=== PATIENT | female | born 1955 | race African-American/Black ===

== ENCOUNTER 2019-02-18 02:14 | Inpatient (IN) | payer OTHER ==
[2019-02-18] VITALS (21 sets, daily range): BP systolic 74–175; BP diastolic 35–109
[~2019-02-18] VITALS: Ht 172.7 cm; Wt 88.5 kg
--- NOTE | 2019-02-18 02:28 | NUR ---
ED Nurse Note: Pt arrived Ed from home, c/o feeling "having a popcorn in her throat since 2129 today". Pt is A/O X 4. BP 172/89 at this time, waitng for orders.
--- NOTE | 2019-02-18 02:40 | NUR ---
ED Nurse Note: Blood and urine sample collected and sent to Lab.
[2019-02-18] MEDS ORDERED: DiphenhydrAMINE 50mg/ml Inj IVP ONE (02:45)
[2019-02-18] MEDS ORDERED: Solu-MEDROL 125mg Inj IVP ONE (02:45)
--- NOTE | 2019-02-18 02:53 | Emergency Room Report ---
History of Present Illness General Chief Complaint: Allergic Reaction Source: Patient Present Illness [facility] This is 63-year-old female with a history of high blood pressure on lisinopril. She also has a history of multiple sclerosis recently diagnosed. She presents with chief complaint of foreign body sensation. Onset was around 9:00 PM. 30 minutes prior to that she was eating popcorn. She had a foreign body sensation to her throat. She try coughing and eating and drinking but is not getting any better. She fell is getting worse. She try to induce vomiting in that did not help. She felt that her throat was swelling up. Does not have any allergy to corn. Denies any other complaint. Never had this problem before. Allergies: Coded Allergies: CEPHALEXIN (Verified Allergy, Unknown, 02/18/19) IODINE (Verified Allergy, Unknown, 02/18/19) PENICILLINS (Verified Allergy, Unknown, 02/18/19) Patient History Past Medical History: see triage record, old chart reviewed, HTN, other - MS Past Surgical History: other Pertinent Family History: none Social History: Denies: smoking Now: No Immunizations: other Reviewed Nursing Documentation: PMH: Agreed; PSxH: Agreed Nursing Documentation-PMH Hx Hypertension: Yes Review of Systems Eye: Denies: eye pain, blurred vision ENT: Denies: ear pain, nose congestion, throat swelling Respiratory: Reports: shortness of breath; Denies: cough Cardiovascular: Denies: chest pain, palpitations Gastrointestinal: Denies: abdominal pain, diarrhea, nausea, vomiting Musculoskeletal: Denies: back pain, joint pain Skin: Denies: rash Neurological: Denies: headache, numbness Endocrine: Denies: increased thirst, increased urine Hematologic/Lymphatic: Denies: easy bruising All Other Systems: negative except mentioned in HPI Physical Exam Vital Signs Date Time Temp Pulse Resp B/P (MAP) Pulse Ox O2 Delivery O2 Flow Rate FiO2 02/18/19 02:25 97.3 95 20 172/103 98 Room Air 96 vitals with high blood pressure Sp02 EP Interpretation: reviewed, normal General Appearance: well appearing, no apparent distress, alert Head: normocephalic, atraumatic Eyes: bilateral eye PERRL, bilateral eye EOMI ENT: hearing grossly normal, other - Edema to soft tissue. Mild edema to right side of tongue. Neck: full range of motion, supple, no meningismus, other - Edema and firmness to soft tissue of submental area Respiratory: chest non-tender, lungs clear, normal breath sounds Cardiovascular #1: regular rate, rhythm, no murmur Gastrointestinal: normal bowel sounds, non tender, no mass, no organomegaly, no bruit, non-distended Musculoskeletal: back normal, gait/station normal, normal range of motion Psychiatric: mood/affect normal Skin: warm/dry Procedures Critical Care Time Critical Care Time Critical care is mandated in this patient who presented with angioedema with respiratory failure. Patient require my urgent intervention to attenuate the risks of respiratory collapse which may lead to cardiovascular collapse and . Critical care time is 35 minutes excluding any reportable procedure. Critical care time included evaluation, multiple reevaluation, looking at old charts, interpreting laboratory and diagnostic data, discussing case with patient and family and consultants, and charting. Intubation Intubation : Consent: Verbal Intubation Method: orotracheal Tube Size (cm): 6.0 Medications: Etomidate, Ketamine Breath Sounds after Intubation: equal Intubation Complications: nosebleed Post Intubation Xray: Yes Progress/Xray Impression: Endotracheal tube in good position Attempts: Other - multiple Patient Tolerated: Well Complications: Other - bleeding Progress This was a very difficult intubation. Part of it is because of anatomy and angioedema. Is diffuse edema. I could not see the vocal cords. Several attempts resulted in esophageal intubation. Nasal attempts also resulted in esophageal intubation. This was discovered her quickly and ET tubes removed. She was then bagged until oxygenation is above 95%. at no point, was oxygenation was below 90%. At one point I place an LMA and was able to ventilate the patient. Unfortunately she was also getting distended in the abdomen. I remove this LMA and was able to intubate using a bougie. I place a 6-0 endotracheal tube over it and able to pass it through into the trachea. There was equal breath sound bilaterally. Not in the stomach. Patient suctioned and placed on ventilator. I did call for anesthesia but it would take to about 30-60 minutes for anesthesia to get here. Medical Decision Making Diagnostic Impression: Primary Impression: Allergic angioedema Qualified Codes: T78.3XXA - Angioneurotic edema, initial encounter Additional Impressions: Acute respiratory failure Qualified Codes: J96.00 - Acute respiratory failure, unspecified whether with hypoxia or hypercapnia Hypertension Qualified Codes: I10 - Essential (primary) hypertension ER Course Patient with angioedema. Most likely triggered by DANNY inhibitor. She is taking lisinopril. Her symptoms or worsening with increasing tongue edema and soft tissue edema the neck. Because of that, I elected to intubate the patient for airway protection. It was a very difficult intubation because of the edema. There were some trauma associated with nasal attempt of intubation. Post intubation x-ray showed pulmonary vascular congestion. Will admit for airway monitoring. I contacted Dr. Sims for admission. Lab Results Impression labs unremarkable. EKG Diagnostic Results Rate: normal Rhythm: NSR ST Segments: no acute changes Rhythm Strip Diag. Results EP Interpretation: yes Rate: 91 Rhythm: NSR, no PVC's, no ectopy Chest X-Ray Diagnostic Results Chest X-Ray Diagnostic Results : Chest X-Ray Ordered: Yes # of Views/Limited/Complete: 1 View Indication: Shortness of Breath EP Interpretation: Yes Interpretation: no consolidation, no effusion, no pneumothorax, no acute cardiopulmonary disease Impression: No acute disease Electronically Signed by: Mynor Matthews MD Last Vital Signs Date Time Temp Pulse Resp B/P (MAP) Pulse Ox O2 Delivery O2 Flow Rate FiO2 02/18/19 02:25 97.3 95 20 172/103 98 Room Air 96 Status: improved Disposition: ADMITTED INPATIENT Condition: Critical Referrals: NON PHYSICIAN (PCP) Mynor Matthews MD Feb 18, 2019 02:53
[2019-02-18] MEDS ORDERED: SYMBICORT 1601 PUFFS INH (02:56)
[2019-02-18] MEDS ORDERED: NAPROXEN500 M2 ORAL (02:56)
[2019-02-18] MEDS ORDERED: AMLODIPINE BESYL5 MG ORAL (02:56)
[2019-02-18] MEDS ORDERED: GABAPENTIN100 MG ORAL (02:56)
[2019-02-18] MEDS ORDERED: ZYRTEC10 MG ORAL (02:56)
[2019-02-18 03:19] LABS: APPEARANCE,URINE CLEAR; BILIRUBIN, URINE NEGATIVE (NEGATIVE); COLOR,URINE PALE YELLOW; GLUCOSE, URINE (UA) NEGATIVE (NEGATIVE); KETONES,URINE NEGATIVE (NEGATIVE); LEUKOCYTE ESTERASE ,URINE NEGATIVE (NEGATIVE); NITRITE,URINE NEGATIVE (NEGATIVE); PH,URINE 5 (4.5-8.0); PROTEIN,URINE NEGATIVE (NEGATIVE); UROBILINOGEN,URINE NORMAL MG/DL (0.0-1.0)
--- NOTE | 2019-02-18 03:42 | NUR ---
ED Nurse Note: 0342 etomidate 20ml given per ermd verbal order, succ 5ml given immediately after. 1 pre drawed rocuronium wasted. ARMIDA Brooks witnessed.
--- NOTE | 2019-02-18 03:43 | NUR ---
ED Nurse Note: Pt was intubated with ETT 6# and NG -tube in place.
[2019-02-18 03:45] LABS: EOSINOPHILS % (AUTO) 3.2 % (0.0-3.0); HEMATOCRIT 50.1 % (37.0-47.0); HEMOGLOBIN 16.1 G/DL (12.0-16.0); LYMPHOCYTES % (AUTO) 31.8 % (20.0-45.0); MEAN CORPUSCULAR VOLUME 79 FL (80-99); MONOCYTES % (AUTO) 6.2 % (1.0-10.0); NEUTROPHILS % (AUTO) 56.7 % (45.0-75.0); PLATELET COUNT 402 K/UL (150-450); RED BLOOD COUNT 6.34 M/UL (4.20-5.40); RED CELL DISTRIBUTION WIDTH 15.3 % (11.6-14.8); WHITE BLOOD COUNT 12.7 K/UL (4.8-10.8)
[2019-02-18 03:58] LABS: INR 0.9 (0.9-1.1)
[2019-02-18] MEDS ORDERED: Ipratropium 0.02% Inh Soln 2.5ml UD ONE (04:00)
[2019-02-18] MEDS ORDERED: Albuterol ud Inhalation ONE (04:00)
[2019-02-18 04:08] LABS: ANION GAP 14 mmol/L (5-15); BLOOD UREA NITROGEN 14 mg/dL (7-18); CALCIUM 9.8 MG/DL (8.5-10.1); CARBON DIOXIDE 24 MMOL/L (21-32); CHLORIDE 100 MMOL/L (98-107); POTASSIUM 3.6 MMOL/L (3.5-5.1); SODIUM 138 MMOL/L (136-145)
--- NOTE | 2019-02-18 04:30 | NUR ---
ED Nurse Note: pt is on ETT with vantilator setting ac 15, TV 600 o2 100%, peep 10.
[2019-02-18] MEDS ORDERED: Midazolam 2mg/2ml Inj IVP ONE ×2 (04:45→06:30)
[2019-02-18] MEDS ORDERED: Etomidate 40mg/20ml Inj IV ONE (04:45)
[2019-02-18] MEDS ORDERED: Succinylcholine 20mg/ml 10ml vial IV ONE (04:45)
[2019-02-18] MEDS ORDERED: Albuterol ud Inhalation HHN ONE ×2 (04:45→06:30)
[2019-02-18] MEDS: Albuterol ud Inhalation HHN ONE ×2 (05:02→05:03)
[2019-02-18] MEDS ORDERED: Propofol 200mg/20ml IV ONE ×2 (05:30→05:33)
--- NOTE | 2019-02-18 05:35 | NUR ---
ED Nurse Note: Restrain was applied for safty of intubation.
--- NOTE | 2019-02-18 06:00 | NUR ---
ED Nurse Note: started FF plasma transfusion.
--- NOTE | 2019-02-18 06:18 | NUR ---
RESPIRATORY NOTE: Received a call from ER stating that patient had self-extubated. Arrived to find patient with ETT tube fully out despite having bilateral restraints. Patient was restless and pulling on everything. Per ER MD orders to place patient on BiPAP. Explained to patient the importance of wearing the BiPAP. Placed patient on a facial mask with foam tape for extra skin protection. RN made aware. Will continue to monitor.
--- NOTE | 2019-02-18 06:25 | NUR ---
ED Nurse Note: Pt was notified that she was Exitubated by herself , possible was due to loosed wrist restain.
--- NOTE | 2019-02-18 06:30 | NUR ---
ED Nurse Note: FF plasma transfusion was completed. pt tolerated well.
--- NOTE | 2019-02-18 06:30 | NUR ---
NURSE NOTES: Pt received at 0630, report received from ARMIDA Baker. Pt A/Ox3-4, agitated. 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 Pt was initially intubated in ER but self extubated shortly after. Pt now on bipap 10/28 @ 100%. Tolerating well at the moment with O2 saturation @ 94%. Swelling of tongue and throat noted, moreso on the right side than the left. NGT was seen pulled out of nose upon arrival to unit. Niño catheter present and draining well. No skin issues noted. Pt has a RH20g, saline locked. HR elevated in 120's, BP stable, O2 saturation WNL, pt seen hypothermic with 95.3 rectal temp. Juan hugger provided and multiple blankets applied. Pt has bilateral wrist restraints present for pulling of lines and bipap. No skin irritation, swelling, or breakdown noted.
--- NOTE | 2019-02-18 06:40 | NUR ---
TRANSFER TO FLOOR: Patient transferred to ICU/ 246 B as ordered. Report given to Ashia/ARMIDA. Belongings sent with Pt and rechecked with RN. All belongings given to pt's son.
--- NOTE | 2019-02-18 07:02 | NUR ---
ED Nurse Note: Propofol witness wasted 100mg/10ml with RN Olivia.
--- NOTE | 2019-02-18 07:10 | NUR ---
NURSE NOTES: Received patient from Evangelina RN/Dayna RN. Pt is awake, but sleepy, oriented x3. Pt is on Bipap 12/5 FIO2 100% with O2sat 98%. Peripheral IV access present on right hand #20G, saline lock, patent/intact. Niño catheter in place, draining yellow/clear urine. Skin is intact. Currently NPO. gas line installer supervisor displays Sinus Tachycardia. No signs/symptoms or report of pain present. Bed is locked and in lowest position, with three side rails up, and call light within easy reach. Will contact Dr Sims for new-admission orders and follow plan of care per MD orders and protocol. Will continue to monitor.
--- NOTE | 2019-02-18 07:18 | NUR ---
RESPIRATORY NOTE: received pt on bipap with setting of 12/5 fio2 100%. partial facial mask on pt with no redness or skin tears visible around facial/neck area. bipap alarms set appropriately and plugged into the red outlet. no apparent resp distress noted at this time. will attempt to titrate fio2 and cont to monitor.
--- NOTE | 2019-02-18 08:42 | NUR ---
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 ACUTE RENAL FAILURE VS: BP 74/45, P 125, T 97.4, RR 20, SpO2 98 on ETT AC 15, TV 600, PEEP 10.0 FiO2 40 WBC 12.7, RBC 6.34, Hgb 16.1, Hct 50.1, ABG: pH 7.269, pO2 106.8, HCO3 19.5 IS:PEPCID 20mg IV SOLU-MEDROL 125mg IVP APRESOLINE 10mg IV MIDAZOLAM 2mg IVP AMIDATE 20mg IV QUELICIN 100mg IV PROVENTIL 2.5mg HHN LASIX 40mg IV DIPRIVAN 100mg IV ADMITTED TO ICU DC PLAN: RETURN HOME
--- NOTE | 2019-02-18 08:53 | NUR ---
RADIOLOGY DEPT., CHEST AND ABDOMEN X-RAYS TAKEN BY TECH. SANCHEZ WHILE PT IN ER AND ICU.OZZIE
--- NOTE | 2019-02-18 09:00 | NUR ---
NURSE NOTES: Dr Sims assessed pt, and ordered new Bipap settings and possible weaning from Bipap, after ABG results. Will process and follow orders. Pt is resting in semi-silva's position with no acute distress. Will continue to monitor.
--- NOTE | 2019-02-18 10:00 | NUR ---
NURSE NOTES: RT at bedside, Bipap removed and replaced with Venturi mask FIO2 50%, 12L O2, with O2sat 93. Family at bedside. Pt used the bedpan, x1 BM, soft/formed/brown. Pt is now resting in bed in stable condition. Will continue to monitor.
[2019-02-18] MEDS: Solu-MEDROL 125mg Inj IVP SCH ×2 (10:17→21:04)
[2019-02-18] MEDS: Heparin 5000 units/ml inj SUBQ SCH ×2 (10:19→21:06)
[2019-02-18] MEDS: Albuterol/Ipratropium 3ml neb HHN SCH ×4 (11:06→23:40)
--- NOTE | 2019-02-18 11:14 | Diagnostic Imaging Report ---
Indication: Dyspnea Comparison: None A single view chest radiograph was obtained. Findings: Cardiomediastinal appearance is within normal limits for age. The lungs are clear. Pulmonary vascularity is appropriate. The diaphragmatic contour is smooth and costophrenic angles are sharp. No pleural effusions are identified. The bones are unremarkable. Impression: No acute findings
--- NOTE | 2019-02-18 12:00 | NUR ---
NURSE NOTES: Pt is placed on soft diet. Venturi mask replaced with 4L of oxygen via nasal cannula, with O2sat at 92-94%. Assisted pt with repositioning. Son at bedside. No sign/symptoms of acute distress. Will continue to monitor.
--- NOTE | 2019-02-18 13:07 | Diagnostic Imaging Report ---
Indication: Dyspnea Comparison: 02/18/2019 at 04:17 A single view chest radiograph was obtained. Findings: Endotracheal tube and nasogastric tubes appear in good position and stable. Interval worsening diffuse bilateral upper lobe reticular nodular opacities noted. Heart size remains normal. IMPRESSION: Bilateral upper lobe interstitial disease, acute in nature and may be due to interstitial edema or pneumonitis. Please correlate clinically.
--- NOTE | 2019-02-18 13:08 | Diagnostic Imaging Report ---
Indication: NG tube placed Comparison: Earlier 02:56 Single view of the chest/abdomen obtained Findings: NG tube is in the stomach in good position. Interval development of interstitial opacities within the upper lobes noted. Heart size remains normal. Endotracheal tube is in good position. IMPRESSION: Development of interstitial disease bilaterally probably due to interstitial edema. This could be cardiogenic or noncardiogenic. Correlate clinically. NG tube and endotracheal tube in good position
--- NOTE | 2019-02-18 13:12 | NUR ---
*-* NO INSURANCE INFORMATION ON THE BAR TO SEND CLINICALS*-*
--- NOTE | 2019-02-18 15:00 | NUR ---
NURSE NOTES: Pt was given propofol in ER prior to admission to ICU. Unused propofol from ER was returned back to pharmacy.
--- NOTE | 2019-02-18 15:11 | NUR ---
RESPIRATORY NOTE: pt has since been weaned off bipap at 1000 and placed on VM 50% and now on 4L NC with saturation of 92-94%. no resp distress noted.
--- NOTE | 2019-02-18 15:48 | NUR ---
NURSE NOTES: Pt is awake, oriented x3, family at beside. On 4L of oxygen via nasal cannula with O2sat 92-94%. Niño catheter is draining yellow/clear urine. Tolerating soft diet. 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 No signs/symptoms or report of pain present. Bed is locked and in lowest position, with three side rails up, and call light within easy reach. Will continue to monitor.
--- NOTE | 2019-02-18 15:57 | Consultation ---
History of Present Illness General Date patient seen: Feb 18, 2019 Reason for Hospitalization: Allergic Reaction Present Illness HPI This is a very pleasant 63-year-old female with medical comorbidities who presented to [facility] complaining of worsening foreign body sensation in the back of her throat with edema swelling and some respiratory concerns. States that it began the night prior in his become worse with feeling of a foreign body in her throat. In ED she was identified to have a swollen oropharynx and question of potential airway compromise and therefore surgery was called to evaluate and be available in case of airway compromise. Patient admitted to the intensive care unit for monitoring. When patient seen states that she feels more comfortable after being given medications and respiratory distress has decreased. She is breathing well able to swallow but this still does have edema and swelling in the back of her throat which feels like something is stuck. Allergies: Coded Allergies: CEPHALEXIN (Verified Allergy, Unknown, 02/18/19) IODINE (Verified Allergy, Unknown, 02/18/19) PENICILLINS (Verified Allergy, Unknown, 02/18/19) Medication History Scheduled Amlodipine Besylate* (Amlodipine Besylate*), 5 MG ORAL DAILY, (Reported) Budesonide/Formoterol Fumarate (Symbicort 160-4.5 Mcg Inhaler), 1 PUFF INH TWICE A DAY, (Reported) Cetirizine Hcl* (Zyrtec*), 10 MG ORAL DAILY, (Reported) Gabapentin* (Gabapentin*), 200 MG ORAL THREE TIMES A DAY, (Reported) Naproxen* (Naproxen*), 500 MG ORAL TWICE A DAY, (Reported) Patient History History Provided By: Patient, Family Member, Medical Record, PMD Healthcare decision maker Resuscitation status Full Code Advanced Directive on File Past Medical/Surgical History Past Medical/Surgical History: (1) Acute respiratory failure (2) Hypertension (3) Allergic angioedema Review of Systems Review of Symptoms General ROS: no weight loss or fever Psychological ROS: no depression or mood changes, no memory loss Ophthalmic ROS: no visual changes or eye irritation ENT ROS: no nasal congestion, hearing loss, dizziness Allergy and Immunology ROS: no allergic symptoms or urticaria Hematological and Lymphatic ROS: no swollen glands, unusual bleeding or bruising Endocrine ROS: no polyuria, polydipsia, weight changes, temperature intolerance Respiratory ROS: no cough, shortness of breath, or wheezing Cardiovascular ROS: no chest pain or dyspnea on exertion Gastrointestinal ROS: denies abdominal pain, no bright red blood in stool. Musculoskeletal ROS: no myalgias or arthralgias Neurological ROS: no TIA or stroke symptoms Dermatological ROS: no new or changing skin lesions, rashes or pruritis Physical Exam Physical Exam General appearance: alert, cooperative, no distress, appears stated age Head: Normocephalic, without obvious abnormality, atraumatic Eyes: conjunctivae/corneas clear. PERRL, EOM's intact. Fundi benign Throat: Lips, mucosa, and tongue normal. Teeth and gums normal swelling noted in the oropharynx with erythema. Neck: supple, symmetrical, trachea midline, no adenopathy, thyroid: not enlarged, symmetric, no tenderness/mass/nodules, no carotid bruit and no JVD Lungs: clear to auscultation bilaterally Heart: regular rate and rhythm, S1, S2 normal, no murmur, click, rub or gallop Abdomen: soft, non-tender. Bowel sounds normal. No masses, no organomegaly Extremities: extremities normal, atraumatic, no cyanosis or edema Pulses: 2+ and symmetric Skin: Skin color, texture, turgor normal. No rashes or lesions Neurologic: Grossly normal Last 24 Hour Vital Signs Date Time Temp Pulse Resp B/P (MAP) Pulse Ox O2 Delivery O2 Flow Rate FiO2 02/18/19 15:04 116 20 97 Nasal Cannula 2.0 02/18/19 15:00 112 17 109/69 (82) 97 02/18/19 14:58 121 22 94 Nasal Cannula 2.0 28 02/18/19 14:00 109 18 117/77 (90) 92 02/18/19 13:00 104 16 110/75 (87) 92 02/18/19 12:00 103 02/18/19 12:00 12.0 50 02/18/19 12:00 97.6 106 16 111/76 (88) 92 02/18/19 12:00 Venturi Mask 12.0 Bi-pap 02/18/19 11:23 105 20 94 Venturi Mask 12.0 50 02/18/19 11:06 111 22 92 Venturi Mask 12.0 50 02/18/19 11:00 113 34 116/84 (95) 92 02/18/19 10:00 102 15 102/72 (82) 95 02/18/19 10:00 Venturi Mask 12.0 50 02/18/19 10:00 94 Venturi Mask 12.0 50 02/18/19 09:00 104 16 102/76 (85) 97 02/18/19 08:57 106 16 98 Facial 40 02/18/19 08:00 Bi-pap Bi-pap 02/18/19 08:00 107 02/18/19 08:00 97.5 106 17 118/76 (90) 98 02/18/19 07:02 97.6 125 21 104/67 96 Bi-pap 100 02/18/19 07:00 95.3 121 22 128/109 (115) 94 02/18/19 06:30 123 24 100 Facial 100 02/18/19 06:30 98.1 125 21 02/18/19 06:26 22 74/35 Mechanical Ventilator 100 02/18/19 06:25 98.1 125 20 125/83 98 Bi-pap 2.0 100 02/18/19 06:15 98.1 125 21 02/18/19 06:15 Bi-pap 100 02/18/19 06:01 20 122/40 Mechanical Ventilator 100 02/18/19 06:00 98.1 127 21 02/18/19 06:00 98.1 127 20 130/89 100 Mechanical Ventilator 2.0 100 02/18/19 05:46 20 137/77 Mechanical Ventilator 100 02/18/19 05:45 97.4 127 21 74/45 100 Endotracheal Tube 2.0 100 02/18/19 05:35 21 Endotracheal Tube 100 02/18/19 05:31 21 161/113 Endotracheal Tube 100 02/18/19 05:30 21 161/113 Endotracheal Tube 100 02/18/19 05:10 2.0 100 02/18/19 05:03 122 20 100 Mechanical Ventilator 100 02/18/19 05:03 124 20 100 Mechanical Ventilator 100 02/18/19 04:57 118 20 100 Mechanical Ventilator 100 02/18/19 04:46 185/110 02/18/19 04:26 40 02/18/19 03:42 126 17 40 02/18/19 03:42 126 17 Mechanical Ventilator 100 02/18/19 02:28 85 20 Nasal Cannula 2.0 96 02/18/19 02:28 97.4 78 20 175/103 98 Nasal Cannula 2.0 96 02/18/19 02:25 97.3 95 20 172/103 98 Room Air 96 Intake and Output 02/17/19 02/18/19 19:00 07:00 Intake Total 0 ml Balance 0 ml Intake Oral 0 ml Laboratory Tests Test 02/18/19 03:07 02/18/19 03:15 02/18/19 05:15 02/18/19 09:58 Urine Color Pale yellow Urine Appearance Clear Urine pH 5 (4.5-8.0) Urine Specific [place] 1.005 (1.005-1.035) Urine Protein Negative (NEGATIVE) Urine Glucose (UA) Negative (NEGATIVE) Urine Ketones Negative (NEGATIVE) Urine Blood Negative (NEGATIVE) Urine Nitrite Negative (NEGATIVE) Urine Bilirubin Negative (NEGATIVE) Urine Urobilinogen Normal MG/DL (0.0-1.0) Urine Leukocyte Esterase Negative (NEGATIVE) Urine RBC 0-2 /HPF (0 - 2) Urine WBC 0 /HPF (0 - 2) Urine Squamous Epithelial Cells Few /LPF (NONE/OCC) Urine Bacteria None /HPF (NONE) White Blood Count 12.7 K/UL (4.8-10.8) H Red Blood Count 6.34 M/UL (4.20-5.40) H Hemoglobin 16.1 G/DL (12.0-16.0) H Hematocrit 50.1 % (37.0-47.0) H Mean Corpuscular Volume 79 FL (80-99) L Mean Corpuscular Hemoglobin 25.3 PG (27.0-31.0) L Mean Corpuscular Hemoglobin Concent 32.1 G/DL (32.0-36.0) Red Cell Distribution Width 15.3 % (11.6-14.8) H Platelet Count 402 K/UL (150-450) Mean Platelet Volume 5.7 FL (6.5-10.1) L Neutrophils (%) (Auto) 56.7 % (45.0-75.0) Lymphocytes (%) (Auto) 31.8 % (20.0-45.0) Monocytes (%) (Auto) 6.2 % (1.0-10.0) Eosinophils (%) (Auto) 3.2 % (0.0-3.0) H Basophils (%) (Auto) 2.0 % (0.0-2.0) Prothrombin Time 10.0 SEC (9.30-11.50) Prothromb Time International Ratio 0.9 (0.9-1.1) Activated Partial Thromboplast Time 26 SEC (23-33) Sodium Level 138 MMOL/L (136-145) Potassium Level 3.6 MMOL/L (3.5-5.1) Chloride Level 100 MMOL/L (98-107) Carbon Dioxide Level 24 MMOL/L (21-32) Anion Gap 14 mmol/L (5-15) Blood Urea Nitrogen 14 mg/dL (7-18) Creatinine 1.0 MG/DL (0.55-1.30) Estimat Glomerular Filtration Rate > 60 mL/min (>60) Glucose Level 118 MG/DL (74-106) H Calcium Level 9.8 MG/DL (8.5-10.1) Triglycerides Level 149 MG/DL (30-150) Arterial Blood pH 7.269 (7.350-7.450) 7.461 (7.350-7.450) Arterial Blood Partial Pressure CO2 43.0 mmHg (35.0-45.0) 36.9 mmHg (35.0-45.0) Arterial Blood Partial Pressure O2 106.8 mmHg (75.0-100.0) H 85.7 mmHg (75.0-100.0) Arterial Blood HCO3 19.5 mmol/L (22.0-26.0) L 25.7 mmol/L (22.0-26.0) Arterial Blood Oxygen Saturation 97.2 % (95-100) 97.0 % (95-100) Arterial Blood Base Excess -7.2 (-2-2) L 2.1 (-2-2) H Giorgi Test N/a Positive Height (Feet): 5 Height (Inches): 8.00 Weight (Pounds): 194 Medications Current Medications Medications (Trade) Dose Ordered Sig/Blaine Route PRN Reason Start Time Stop Time Status Last Admin Dose Admin Albuterol/ Ipratropium (Albuterol/ Ipratropium) 3 ml Q4HRT HHN 02/18/19 11:00 02/23/19 10:59 02/18/19 14:38 Heparin Sodium (Porcine) (Heparin 5000 units/ml) 5,000 units EVERY 12 HOURS SUBQ 02/18/19 09:00 03/20/19 08:59 02/18/19 10:19 Methylprednisolone Sodium Succinate (Solu-MEDROL) 60 mg EVERY 12 HOURS IVP 02/18/19 09:00 03/20/19 08:59 02/18/19 10:17 Propofol 100 ml @ 0 mls/hr Q24H IV 02/18/19 05:30 02/20/19 05:29 02/18/19 05:30 Assessment/Plan Problem List: (1) Allergic angioedema Assessment & Plan: Potentially related to her lisinopril or other medications. Seems to be improving since admitted and given therapy. ICD Codes: T78.3XXA - Angioneurotic edema, initial encounter SNOMED: [id number] Qualifiers: Qualified Codes: T78.3XXA - Angioneurotic edema, initial encounter (2) Acute respiratory failure Assessment & Plan: Acute respiratory compromise from likely allergic reaction. Seems to be improving since admitted. Has foreign body sensation in the back of her throat with edema and swelling without foreign body identified. no respiratory compromise at this time. Continue with intensive care unit monitoring. cont with Rx as written. O2. okay for clear liquids. AM labs. Abx. will be available in case of air way compromise. thank you for allowing me to participate in care . ICD Codes: J96.00 - Acute respiratory failure, unspecified whether with hypoxia or hypercapnia SNOMED: [id number] Qualifiers: Qualified Codes: J96.00 - Acute respiratory failure, unspecified whether with hypoxia or hypercapnia Guero Baird Feb 18, 2019 15:57
--- NOTE | 2019-02-18 17:45 | History and Physical Report ---
DATE OF ADMISSION: 02/18/2019 REASON FOR ADMISSION: Angioedema. HISTORY OF PRESENT ILLNESS: The patient is a 63-year-old female, history of hypertension on lisinopril. The patient has history of multiple sclerosis. The patient apparently has history of angioedema in the past. She was brought in after eating popcorn for 30 minutes and noted a foreign body sensation, difficulty breathing. The patient came in with severe angioedema, intubated, and then self-extubated. The patient currently well and comfortable. No significant distress. No stridor. PAST MEDICAL HISTORY: Notable for hypertension, multiple sclerosis. MEDICATIONS: Reviewed. ALLERGIES: Reviewed. SOCIAL HISTORY: Nonsmoker and nondrinker. No illicit drug use. REVIEW OF SYSTEMS: Otherwise negative. The patient is alert. PHYSICAL EXAMINATION: GENERAL: A well-developed female, comfortable. VITAL SIGNS: Noted and reviewed. Blood pressure 104/67, heart rate 106, respiratory rate 16, sats 98% on 40% FiO2 HEENT: Negative. NECK: Supple. No airway swelling. LUNGS: With moderate air entry. No rhonchi. No wheezes. No stridor. CARDIAC: Normal S1 and S2. Slightly tachycardic. ABDOMEN: Soft, nontender. EXTREMITIES: No edema. LABORATORY DATA: Otherwise reviewed. White count 12.7, hemoglobin 16. Electrolytes negative. Blood sugar 118. Blood gas 7.26, 43, 106. IMPRESSION: 1. Angioedema likely DANNY inhibitor related. 2. Acute respiratory failure. 3. Hypertension. RECOMMENDATION: Discontinue DANNY for now and would now recommend re-using EpiPen on discharge, Solu-Medrol, and BiPAP off if able. Follow up exam. Follow up blood pressure reading and discharge once stable with outpatient followup. Jair Sims M.D. DR: Mile JOB#: [id number] CC:
--- NOTE | 2019-02-18 18:33 | NUR ---
NURSE NOTES: Pt is asleep in bed in stable condition. Vital signs within normal limits. pvc monitor displays normal sinus rhythm. Oxygen level switched to 2L on nasal cannula, with O2sat 92%.
--- NOTE | 2019-02-18 19:25 | NUR ---
HAND-OFF: Report given to Juan HUFFMAN. Pt is resting in bed in stable conditon. Endorsed plan of care.
--- NOTE | 2019-02-18 20:00 | NUR ---
NURSE NOTES: PT AWAKE AND ALERT ON 2L N/C O2 SAT 93-95 0/O NO SIGHS RESP DISTRESS [id number] AND SUCTION
--- NOTE | 2019-02-18 22:00 | NUR ---
NURSE NOTES: SLEEPING AT [facility] NO COMPLETE OF PAIN
[2019-02-19] VITALS (24 sets, daily range): BP systolic 99–123; BP diastolic 50–78
--- NOTE | 2019-02-19 | NUR ---
asleep no acute distress noted
--- NOTE | 2019-02-19 02:00 | NUR ---
NURSE NOTES: asleep vs stable reposition
[2019-02-19] MEDS: Albuterol/Ipratropium 3ml neb HHN SCH ×6 (03:20→23:15)
--- NOTE | 2019-02-19 04:00 | NUR ---
NURSE NOTES: AM CARE, MINOR CARE ORAL CARE DONE NO C/O PAIN [id number] DONE NO SIGH ACUTE DISTRESS NOTED
[2019-02-19 05:53] LABS: HEMATOCRIT 42.8 % (37.0-47.0); HEMOGLOBIN 13.8 G/DL (12.0-16.0); MEAN CORPUSCULAR VOLUME 79 FL (80-99); PLATELET COUNT 343 K/UL (150-450); RED CELL DISTRIBUTION WIDTH 15.2 % (11.6-14.8); WHITE BLOOD COUNT 16.7 K/UL (4.8-10.8)
[2019-02-19 05:59] LABS: ALANINE AMINOTRANSFERASE 27 U/L (12-78); ALBUMIN 3.2 G/DL (3.4-5.0); ALBUMIN/GLOBULIN RATIO 0.9 (1.0-2.7); ALKALINE PHOSPHATASE 75 U/L (46-116); AMYLASE 34 U/L (25-115); ANION GAP 14 mmol/L (5-15); ASPARTATE AMINO TRANSFERASE 33 U/L (15-37); BILIRUBIN,TOTAL 0.6 MG/DL (0.2-1.0); BLOOD UREA NITROGEN 18 mg/dL (7-18); CALCIUM 9.2 MG/DL (8.5-10.1); CARBON DIOXIDE 24 MMOL/L (21-32); CHLORIDE 103 MMOL/L (98-107); CREATININE 1.2 MG/DL (0.55-1.30); POTASSIUM 3.2 MMOL/L (3.5-5.1); SODIUM 141 MMOL/L (136-145)
--- NOTE | 2019-02-19 07:47 | NUR ---
HAND-OFF: Report given to [].NURSE NOTES:
--- NOTE | 2019-02-19 08:00 | NUR ---
NURSE NOTES: Received patient from SAHIL cooney. Patient alert and oriented x4. cabinet installer showing ST. Patient on 2 L nasal cannula saturating above 95%. Niño intact. Skin intact. Denies pain or discomfort at this time. Lung sounds clear bilaterally, hypoactive bowel sounds on all 4 quadrants present. R am 20 saline lock, patent flushing. Potassium of 3.2 reported to MD. order obtained. Bed on lowest position, bed alarm on, call light within reach. will continue to monitor patient.
--- NOTE | 2019-02-19 10:00 | NUR ---
NURSE NOTES: Son at bedside, VSS, no distress noted, Patient denies any pain. Transfer order obtained. Will continue plan of care.
[2019-02-19] MEDS: Solu-MEDROL 125mg Inj IVP SCH ×2 (10:03→20:35)
[2019-02-19] MEDS: Heparin 5000 units/ml inj SUBQ SCH ×2 (10:06→20:38)
--- NOTE | 2019-02-19 10:51 | NUR ---
Social Work This SW met with patient, currently in the ICU who remains alert/oriented x4, originally from [place], here visiting her son, who plans to assist after discharge. Patient states she remains independent with ALDs, ambulation (uses cane), a retired [employer]. Patient denied any substance abuse, admits to depression (at times, which she explains is "situational," but has supportive friends and relying on shahla for a positive outlook on life. Patient explains she plans to return home to [place] next Friday. This Sw advised awareness to not overdoing activity levels, which may have effected her M.S (drove to [place] in two two days prior to admission). No other needs/concerns present at this time; patient remains full code, full treatment at this time.
--- NOTE | 2019-02-19 11:15 | Pulmonolgy Critical Care Note ---
Critical Care - Asmt/Plan Assessment/Plan: Pulmonary/CCM Progress Note REASON FOR ADMISSION: Angioedema. HISTORY OF PRESENT ILLNESS: The patient is a 63-year-old female, history of hypertension on lisinopril. The patient has history of multiple sclerosis. The patient apparently has history of angioedema in the past. She was brought in after eating popcorn for 30 minutes and noted a foreign body sensation, difficulty breathing. The patient came in with severe angioedema, intubated, and then self-extubated. The patient currently well and comfortable. No significant distress. No stridor. Feels improved today PAST MEDICAL HISTORY: Notable for hypertension, multiple sclerosis. MEDICATIONS: Reviewed. ALLERGIES: Reviewed. SOCIAL HISTORY: Nonsmoker and nondrinker. No illicit drug use. REVIEW OF SYSTEMS: Otherwise negative. The patient is alert. PHYSICAL EXAMINATION: GENERAL: A well-developed female, comfortable. VITAL SIGNS NOTED HEENT: Negative. NECK: Supple. No airway swelling. LUNGS: With moderate air entry. No rhonchi. No wheezes. No stridor. CARDIAC: Normal S1 and S2. Slightly tachycardic. ABDOMEN: Soft, nontender. EXTREMITIES: No edema. LABORATORY DATA NOTED: Otherwise reviewed. White count 12.7, hemoglobin 16. Electrolytes negative. Blood sugar 118. Blood gas 7.26, 43, 106. K3.2 IMPRESSION: 1. Angioedema likely DANNY inhibitor related. 2. Acute respiratory failure. 3. Hypertension. RECOMMENDATION: Discontinue DANNY for now and would now recommend using EpiPen PRN on discharge, Solu-Medrol, BiPAP PRN. Follow up exam. Follow up blood pressure reading and discharge once stable with outpatient followup. Critical Care - Objective Last 24 Hour Vital Signs Date Time Temp Pulse Resp B/P (MAP) Pulse Ox O2 Delivery O2 Flow Rate FiO2 02/19/19 10:57 106 18 95 Room Air 21 02/19/19 10:00 108 16 118/60 (79) 96 02/19/19 09:00 110 16 114/55 (74) 96 02/19/19 08:00 98.5 114 15 118/60 (79) 98 02/19/19 08:00 114 02/19/19 08:00 Nasal Cannula 2.0 Nasal Cannula 2.0 02/19/19 08:00 Nasal Cannula 4.0 Nasal Cannula 4.0 3/29/19 07:00 111 16 115/57 (76) 96 02/19/19 06:39 121 19 94 Room Air 21 02/19/19 06:39 121 Room Air 21 02/19/19 06:37 Room Air 21 02/19/19 06:37 95 Room Air 21 02/19/19 06:00 95 16 102/50 (67) 96 02/19/19 05:00 98.2 95 16 102/50 (67) 96 02/19/19 04:00 104 02/19/19 04:00 Nasal Cannula 4.0 Nasal Cannula 4.0 02/19/19 04:00 98.2 101 15 99/54 (69) 95 02/19/19 03:30 100 17 99 Nasal Cannula 2.0 28 02/19/19 03:20 108 19 95 Nasal Cannula 2.0 28 02/19/19 03:00 92 15 104/65 (78) 95 02/19/19 02:00 96 15 100/56 (71) 94 02/19/19 01:00 103 13 104/66 (79) 95 02/19/19 00:00 Nasal Cannula 4.0 Nasal Cannula 4.0 02/19/19 00:00 98.5 102 16 113/72 (86) 94 02/19/19 00:00 96 02/18/19 23:50 101 14 98 Nasal Cannula 2.0 28 02/18/19 23:40 113 17 95 Nasal Cannula 2.0 28 02/18/19 23:00 110 18 91/56 (68) 95 02/18/19 22:00 106 18 91/56 (68) 95 02/18/19 21:00 98.2 101 18 106/65 (79) 95 02/18/19 20:00 98.2 104 18 114/75 (88) 95 02/18/19 20:00 102 02/18/19 20:00 Nasal Cannula 4.0 Nasal Cannula 4.0 02/18/19 19:48 108 18 96 Nasal Cannula 2.0 28 02/18/19 19:38 102 17 94 Nasal Cannula 2.0 28 02/18/19 19:38 93 Nasal Cannula 2.0 28 02/18/19 19:38 Nasal Cannula 2.0 28 02/18/19 19:00 105 18 119/76 (90) 93 02/18/19 18:00 99 19 108/76 (87) 93 02/18/19 17:00 98 13 101/68 (79) 94 02/18/19 16:00 Nasal Cannula 4.0 Nasal Cannula 4.0 02/18/19 16:00 98.2 114 18 127/79 (95) 93 02/18/19 16:00 100 02/18/19 15:04 116 20 97 Nasal Cannula 2.0 28 02/18/19 15:00 112 17 109/69 (82) 97 02/18/19 14:58 121 22 94 Nasal Cannula 2.0 28 02/18/19 14:00 109 18 117/77 (90) 92 02/18/19 13:00 104 16 110/75 (87) 92 02/18/19 12:00 103 02/18/19 12:00 12.0 50 02/18/19 12:00 97.6 106 16 111/76 (88) 92 02/18/19 12:00 Venturi Mask 12.0 Bi-pap 02/18/19 11:23 105 20 94 Venturi Mask 12.0 50 Critical Care - Subjective ROS Limited/Unobtainable: No Condition: stable FI02: 21 Vent Support Breath Rate: 15 Vent Support Mode: AC Vent Tidal Volume: 600 Sputum Amount: None PEEP: 10.0 PIP: 37 I&O: Intake and Output 02/18/19 02/19/19 18:59 06:59 Intake Total 300 ml 100 ml Output Total 1355 ml 510 ml Balance -1055 ml -410 ml Intake Oral 0 ml 100 ml Blood Product 300 ml Output Urine Total 1355 ml 510 ml # Bowel Movements 2 3 ET-Tube: 6.0 ET Position: 23 Brannon Machado MD Feb 19, 2019 11:15
--- NOTE | 2019-02-19 12:00 | NUR ---
NURSE NOTES: VSS. No distress noted. Patient with son and grandaugther at bedside. Stable. No changes in condition. Denies pain or discomfort.
--- NOTE | 2019-02-19 13:15 | NUR ---
BEHAVIORAL GENETICISTACADEMIC ADVISEMENT DIRECTOR SI:ALLERGIC ANGIOEDEMA . ARF VS: BP 110/57, P 108, T 98.8, RR 16, SpO2 98 on NC 4.0L WBC 16.7, K 3.2 CXR IMPRESSION: Bilateral upper lobe interstitial disease, acute in nature and may be due to interstitial edema or pneumonitis. IS:SOLU-MEDROL 60mg IVP HEPARIN SUBQ ALBUTEROL 3ml HHN K-DUR 40meq ICU STATUS
--- NOTE | 2019-02-19 14:00 | NUR ---
NURSE NOTES: Patient asleep. VSS. No distress noted. Will continue plan of care.
--- NOTE | 2019-02-19 16:00 | NUR ---
NURSE NOTES: Patient self repositioned. No new orders. Remains watching TV. VSS. NO distress noted.
--- NOTE | 2019-02-19 17:21 | Surgery Progress Note ---
Surgery Progress Note Subjective Additional Comments looks much better today. respiratory stable. talking. swallowing well. no pain. no complaints. leukocytosis. tachy Objective Last 24 Hour Vital Signs Date Time Temp Pulse Resp B/P (MAP) Pulse Ox O2 Delivery O2 Flow Rate FiO2 02/19/19 16:00 108 02/19/19 16:00 98.8 104 16 115/65 (82) 98 02/19/19 16:00 Nasal Cannula 4.0 Nasal Cannula 4.0 02/19/19 15:00 108 16 118/64 (82) 98 02/19/19 14:49 104 21 96 Room Air 21 02/19/19 14:39 97 15 96 Room Air 21 02/19/19 14:00 105 16 112/58 (76) 98 02/19/19 13:00 103 16 110/57 (74) 98 02/19/19 12:00 105 02/19/19 12:00 Nasal Cannula 4.0 Nasal Cannula 4.0 02/19/19 12:00 98.8 105 16 114/64 (81) 98 02/19/19 11:07 106 17 97 Room Air 21 02/19/19 11:00 104 16 110/58 (75) 98 02/19/19 10:57 106 18 95 Room Air 21 02/19/19 10:00 108 16 118/60 (79) 96 02/19/19 09:00 110 16 114/55 (74) 96 02/19/19 08:00 98.5 114 15 118/60 (79) 98 02/19/19 08:00 114 02/19/19 08:00 Nasal Cannula 2.0 Nasal Cannula 2.0 02/19/19 08:00 Nasal Cannula 4.0 Nasal Cannula 4.0 02/19/19 07:00 111 16 115/57 (76) 96 02/19/19 06:39 121 19 94 Room Air 21 02/19/19 06:39 121 Room Air 21 02/19/19 06:37 Room Air 21 02/19/19 06:37 95 Room Air 21 02/19/19 06:00 95 16 102/50 (67) 96 02/19/19 05:00 98.2 95 16 102/50 (67) 96 02/19/19 04:00 104 02/19/19 04:00 Nasal Cannula 4.0 Nasal Cannula 4.0 02/19/19 04:00 98.2 101 15 99/54 (69) 95 02/19/19 03:30 100 17 99 Nasal Cannula 2.0 28 02/19/19 03:20 108 19 95 Nasal Cannula 2.0 28 02/19/19 03:00 92 15 104/65 (78) 95 02/19/19 02:00 96 15 100/56 (71) 94 02/19/19 01:00 103 13 104/66 (79) 95 02/19/19 00:00 Nasal Cannula 4.0 Nasal Cannula 4.0 02/19/19 00:00 98.5 102 16 113/72 (86) 94 02/19/19 00:00 96 02/18/19 23:50 101 14 98 Nasal Cannula 2.0 28 02/18/19 23:40 113 17 95 Nasal Cannula 2.0 28 02/18/19 23:00 110 18 91/56 (68) 95 02/18/19 22:00 106 18 91/56 (68) 95 02/18/19 21:00 98.2 101 18 106/65 (79) 95 02/18/19 20:00 98.2 104 18 114/75 (88) 95 02/18/19 20:00 102 02/18/19 20:00 Nasal Cannula 4.0 Nasal Cannula 4.0 02/18/19 19:48 108 18 96 Nasal Cannula 2.0 28 02/18/19 19:38 102 17 94 Nasal Cannula 2.0 28 02/18/19 19:38 93 Nasal Cannula 2.0 28 02/18/19 19:38 Nasal Cannula 2.0 28 02/18/19 19:00 105 18 119/76 (90) 93 02/18/19 18:00 99 19 108/76 (87) 93 I&O Intake and Output 02/18/19 02/19/19 19:00 07:00 Intake Total 300 ml 100 ml Output Total 1385 ml 530 ml Balance -1085 ml -430 ml Intake Oral 0 ml 100 ml Blood Product 300 ml Output Urine Total 1385 ml 530 ml # Bowel Movements 2 3 Drains: none Cardiovascular: RSR Respiratory: clear Abdomen: soft, flat, non-tender, present bowel sounds, non-distended Extremities: no edema, no tenderness, no cyanosis Laboratory Tests Test 3/29/19 04:15 White Blood Count 16.7 K/UL (4.8-10.8) H Red Blood Count 5.40 M/UL (4.20-5.40) Hemoglobin 13.8 G/DL (12.0-16.0) Hematocrit 42.8 % (37.0-47.0) Mean Corpuscular Volume 79 FL (80-99) L Mean Corpuscular Hemoglobin 25.6 PG (27.0-31.0) L Mean Corpuscular Hemoglobin Concent 32.2 G/DL (32.0-36.0) Red Cell Distribution Width 15.2 % (11.6-14.8) H Platelet Count 343 K/UL (150-450) Mean Platelet Volume 5.8 FL (6.5-10.1) L Neutrophils (%) (Auto) % (45.0-75.0) Lymphocytes (%) (Auto) % (20.0-45.0) Monocytes (%) (Auto) % (1.0-10.0) Eosinophils (%) (Auto) % (0.0-3.0) Basophils (%) (Auto) % (0.0-2.0) Differential Total Cells Counted 100 Neutrophils % (Manual) 91 % (45-75) H Lymphocytes % (Manual) 8 % (20-45) L Monocytes % (Manual) 1 % (1-10) Eosinophils % (Manual) 0 % (0-3) Basophils % (Manual) 0 % (0-2) Band Neutrophils 0 % (0-8) Platelet Estimate Adequate Platelet Morphology Normal Red Blood Cell Morphology Normal Anisocytosis Erythrocyte Sedimentation Rate 23 MM/HR (0-30) Sodium Level 141 MMOL/L (136-145) Potassium Level 3.2 MMOL/L (3.5-5.1) L Chloride Level 103 MMOL/L (98-107) Carbon Dioxide Level 24 MMOL/L (21-32) Anion Gap 14 mmol/L (5-15) Blood Urea Nitrogen 18 mg/dL (7-18) Creatinine 1.2 MG/DL (0.55-1.30) Estimat Glomerular Filtration Rate 54.9 mL/min (>60) Glucose Level 181 MG/DL (74-106) H Calcium Level 9.2 MG/DL (8.5-10.1) Total Bilirubin 0.6 MG/DL (0.2-1.0) Aspartate Amino Transf (AST/SGOT) 33 U/L (15-37) Alanine Aminotransferase (ALT/SGPT) 27 U/L (12-78) Alkaline Phosphatase 75 U/L (46-116) C-Reactive Protein, Quantitative 2.2 mg/dL (0.00-0.90) H Total Protein 6.9 G/DL (6.4-8.2) Albumin 3.2 G/DL (3.4-5.0) L Globulin 3.7 g/dL Albumin/Globulin Ratio 0.9 (1.0-2.7) L Amylase Level 34 U/L (25-115) Lipase 114 U/L (73-393) Plan Problems: (1) Allergic angioedema Assessment & Plan: Potentially related to her lisinopril or other medications. Seems to be improving since admitted and given therapy. (2) Acute respiratory failure Assessment & Plan: Acute respiratory compromise from likely allergic reaction. Seems to be improving since admitted. Has foreign body sensation in the back of her throat with edema and swelling without foreign body identified. no respiratory compromise at this time. Continue with intensive care unit monitoring. cont with Rx as written. O2. okay for clear liquids. AM labs. Abx. will be available in case of air way compromise. thank you for allowing me to participate in care . leukocytosis likely from steroids improving monitor Guero Baird Feb 19, 2019 17:21
--- NOTE | 2019-02-19 18:04 | NUR ---
NURSE NOTES: VSS. No distress noted. Will continue monitor patient.
--- NOTE | 2019-02-19 19:07 | NUR ---
HAND-OFF: Report given to Pam RN using SBAR. VSS. No distress noted.
--- NOTE | 2019-02-19 19:52 | NUR ---
NURSE NOTES: pt awake and alert c/o head acke dr hickey was notify with order made medication given as order
--- NOTE | 2019-02-19 22:00 | NUR ---
NURSE NOTES: pt sleeping no c/o pain hr st [id number] reposition self
[2019-02-20] VITALS (18 sets, daily range): BP systolic 112–158; BP diastolic 58–101
--- NOTE | 2019-02-20 | NUR ---
NURSE NOTES: pt asleep no acute distress noted
--- NOTE | 2019-02-20 02:00 | NUR ---
NURSE NOTES: awake and alert no c/o pain
[2019-02-20] MEDS: Albuterol/Ipratropium 3ml neb HHN SCH ×6 (03:43→22:23)
--- NOTE | 2019-02-20 04:00 | NUR ---
NURSE NOTES: bed bath done oral care noel cath dc medication for pain c/o of headache
--- NOTE | 2019-02-20 06:00 | NUR ---
NURSE NOTES:: pt asleep no c/o of pain
--- NOTE | 2019-02-20 08:04 | NUR ---
NURSE NOTES: Received patient from Adriana RN. Asleep when received easily arousal to verbal and tactile stimuli.Sinua Tachycardia on the monitor and afebrile at this time.Room air and saturate at 95%.Saline lock 20 gauge right arm patent with no s/s infiltration.Abdomen soft and non distended.Able to self repositioned, kept clean , dry and comfortable.Call light within reach. Will continue to monitor
[2019-02-20] MEDS: Solu-MEDROL 125mg Inj IVP SCH (08:08)
[2019-02-20] MEDS: Heparin 5000 units/ml inj SUBQ SCH ×2 (08:14→20:52)
--- NOTE | 2019-02-20 10:12 | NUR ---
NURSE NOTES: Patient easily irritable due to environment stimuli.Charge nurse notified and room offered in Telemetry but pt prefer to be in private room.Awaiting for room private room.Refused to be move in Med surg where is the only private room because she will rather been on continuos cardiac monitoring.Charge nurse made aware
--- NOTE | 2019-02-20 10:49 | NUR ---
CASE MANAGEMENT: REVIEW SI: ALLERGIC ANGIOEDEMA / DANNY INHIBITOR RELATED? . ACUTE RESPIRATORY FAILURE T 98.6 HR 112 RR 16 BP 150/95 SAT 89% NC/4L IS: SOLU MEDROL IV Q12HR ALBUTEROL HHN Q4HR HEPARIN SQ Q12HR ICU STATUS DCP: PATIENT IS FROM HOME
--- NOTE | 2019-02-20 11:09 | NUR ---
NURSE NOTES: Patient visited by son, no acute distress noted. call light within easy reach
[2019-02-20 11:26] LABS: MEAN CORPUSCULAR VOLUME 80 FL (80-99); PLATELET COUNT 390 K/UL (150-450); RED BLOOD COUNT 6.03 M/UL (4.20-5.40); RED CELL DISTRIBUTION WIDTH 15.4 % (11.6-14.8); WHITE BLOOD COUNT 21.3 K/UL (4.8-10.8)
[2019-02-20 11:38] LABS: ANION GAP 12 mmol/L (5-15); BLOOD UREA NITROGEN 24 mg/dL (7-18); CALCIUM 9.7 MG/DL (8.5-10.1); CARBON DIOXIDE 27 MMOL/L (21-32); CHLORIDE 103 MMOL/L (98-107); CREATININE 1.1 MG/DL (0.55-1.30); POTASSIUM 3.9 MMOL/L (3.5-5.1); SODIUM 142 MMOL/L (136-145)
--- NOTE | 2019-02-20 14:11 | NUR ---
NURSE NOTES: Pt awake watching tv with no acute distress.Kept clean dry and comfortable.All needs attended at the pt level of comfort.Denied of any discomfort at this time and [place] light within easy reach Addendum: 02/20/19 at 1426 by Rona Rojas RN Seen by Dr Machado with new orders noted and carried out
--- NOTE | 2019-02-20 15:30 | NUR ---
NURSE NOTES: Room obtained and patient cleaned and dry.All belongings placed in a bag. Will transfer patient to Tele room 218
--- NOTE | 2019-02-20 16:10 | NUR ---
NURSE NOTES: Patient provided a list of medications she was taking at home and will like to continue those medications.Medications list verified with Dr Machado with ok to use. Order carried out and patient made aware
[2019-02-20] MEDS ORDERED: Naproxen 500mg tab ORAL PRN (16:30)
--- NOTE | 2019-02-20 16:45 | Surgery Progress Note ---
Surgery Progress Note Subjective Symptoms: tolerating diet, passing flatus Additional Comments doing very well today. respiratory stable. comfortable. no complaints. being downgraded from ICU Objective Last 24 Hour Vital Signs Date Time Temp Pulse Resp B/P (MAP) Pulse Ox O2 Delivery O2 Flow Rate FiO2 02/20/19 15:31 Room Air 21 02/20/19 15:31 102 22 98 Nasal Cannula 2.0 28 02/20/19 14:00 102 16 145/86 (105) 94 02/20/19 13:00 106 16 152/86 (108) 99 02/20/19 12:27 97.8 02/20/19 12:00 Nasal Cannula 4.0 02/20/19 12:00 108 02/20/19 12:00 98.0 101 16 112/64 (80) 100 02/20/19 11:22 100 20 97 Room Air 21 02/20/19 11:15 93 20 98 Room Air 21 02/20/19 11:00 99 16 158/101 (120) 99 02/20/19 10:00 104 16 150/95 (113) 96 02/20/19 09:00 99 14 134/82 (99) 96 02/20/19 08:00 94 02/20/19 08:00 Nasal Cannula 4.0 02/20/19 08:00 Nasal Cannula 2.0 02/20/19 08:00 98.6 112 16 112/64 (80) 95 02/20/19 07:09 98 16 94 Room Air 21 02/20/19 07:09 Room Air 21 02/20/19 07:09 Room Air 21 02/20/19 07:09 94 Room Air 02/20/19 07:00 95 14 118/66 (83) 92 02/20/19 06:00 98 18 134/85 (101) 93 02/20/19 05:00 97 15 116/58 (77) 90 02/20/19 04:00 99 02/20/19 04:00 Nasal Cannula 4.0 02/20/19 04:00 98.0 126 20 154/64 (94) 93 02/20/19 03:53 104 18 98 Room Air 21 02/20/19 03:45 102 16 95 Room Air 21 02/20/19 03:00 108 22 134/65 (88) 92 02/20/19 02:00 110 21 137/80 (99) 93 02/20/19 01:00 112 18 134/85 (101) 93 02/20/19 00:00 97.8 114 16 116/79 (91) 89 02/20/19 00:00 97 02/20/19 00:00 Nasal Cannula 4.0 02/19/19 23:24 95 18 98 Room Air 21 02/19/19 23:15 109 16 95 Room Air 21 02/19/19 23:00 107 22 121/63 (82) 92 02/19/19 22:00 111 22 123/78 (93) 92 02/19/19 21:00 109 17 114/55 (74) 91 02/19/19 20:00 110 02/19/19 20:00 Nasal Cannula 4.0 02/19/19 20:00 97.8 111 18 116/62 (80) 90 02/19/19 19:27 112 18 95 Room Air 21 02/19/19 19:17 Room Air 21 02/19/19 19:17 95 Room Air 02/19/19 19:16 114 18 95 Room Air 21 02/19/19 19:00 115 16 118/65 (82) 98 02/19/19 18:00 108 16 116/61 (79) 98 02/19/19 17:00 102 16 113/62 (79) 98 I&O Intake and Output 02/19/19 02/20/19 18:59 06:59 Intake Total 50 ml 50 ml Output Total 440 ml 590 ml Balance -390 ml -540 ml Intake Oral 50 ml 50 ml Output Urine Total 440 ml 590 ml # Bowel Movements 3 3 Cardiovascular: RSR Respiratory: clear Abdomen: soft, non-tender, present bowel sounds, non-distended Extremities: no tenderness, no cyanosis Laboratory Tests Test 02/20/19 10:35 White Blood Count 21.3 K/UL (4.8-10.8) H Red Blood Count 6.03 M/UL (4.20-5.40) H Hemoglobin 15.0 G/DL (12.0-16.0) Hematocrit 48.0 % (37.0-47.0) H Mean Corpuscular Volume 80 FL (80-99) Mean Corpuscular Hemoglobin 24.9 PG (27.0-31.0) L Mean Corpuscular Hemoglobin Concent 31.3 G/DL (32.0-36.0) L Red Cell Distribution Width 15.4 % (11.6-14.8) H Platelet Count 390 K/UL (150-450) Mean Platelet Volume 5.7 FL (6.5-10.1) L Neutrophils (%) (Auto) % (45.0-75.0) Lymphocytes (%) (Auto) % (20.0-45.0) Monocytes (%) (Auto) % (1.0-10.0) Eosinophils (%) (Auto) % (0.0-3.0) Basophils (%) (Auto) % (0.0-2.0) Differential Total Cells Counted 100 Neutrophils % (Manual) 94 % (45-75) H Lymphocytes % (Manual) 4 % (20-45) L Monocytes % (Manual) 2 % (1-10) Eosinophils % (Manual) 0 % (0-3) Basophils % (Manual) 0 % (0-2) Band Neutrophils 0 % (0-8) Platelet Estimate Adequate Platelet Morphology Normal Red Blood Cell Morphology Normal Sodium Level 142 MMOL/L (136-145) Potassium Level 3.9 MMOL/L (3.5-5.1) Chloride Level 103 MMOL/L (98-107) Carbon Dioxide Level 27 MMOL/L (21-32) Anion Gap 12 mmol/L (5-15) Blood Urea Nitrogen 24 mg/dL (7-18) H Creatinine 1.1 MG/DL (0.55-1.30) Estimat Glomerular Filtration Rate > 60 mL/min (>60) Glucose Level 169 MG/DL (74-106) H Calcium Level 9.7 MG/DL (8.5-10.1) Plan Problems: (1) Allergic angioedema Assessment & Plan: Potentially related to her lisinopril or other medications. Seems to be improving since admitted and given therapy. (2) Acute respiratory failure Assessment & Plan: Acute respiratory compromise from likely allergic reaction. Seems to be improving since admitted. Has foreign body sensation in the back of her throat with edema and swelling without foreign body identified. no respiratory compromise at this time. Continue with intensive care unit monitoring. cont with Rx as written. O2. okay for clear liquids. AM labs. Abx. will be available in case of air way compromise. thank you for allowing me to participate in care . leukocytosis likely from steroids improving monitor Guero Baird Feb 20, 2019 16:45
--- NOTE | 2019-02-20 16:50 | NUR ---
NURSE NOTES: Patient transferred to telemetry room 218 and report given to ARMIDA Wheatley
--- NOTE | 2019-02-20 17:00 | NUR ---
NURSE NOTES: Received patient via gurney. Report given by ARMIDA Rea. Patient is alert and oriented x4. No signs ans symptoms of acute distress noted at this time. Bed in lowest position with two side rails up and break engaged. Will continue to monitor.
--- NOTE | 2019-02-20 17:12 | Pulmonolgy Critical Care Note ---
Critical Care - Asmt/Plan Assessment/Plan: Pulmonary/CCM Progress Note REASON FOR ADMISSION: Angioedema. HISTORY OF PRESENT ILLNESS: The patient is a 63-year-old female, history of hypertension on lisinopril. The patient has history of multiple sclerosis. The patient apparently has history of angioedema in the past. She was brought in after eating popcorn for 30 minutes and noted a foreign body sensation, difficulty breathing. The patient came in with severe angioedema, intubated, and then self-extubated. The patient currently well and comfortable. No significant distress. No stridor. Feels improved today PAST MEDICAL HISTORY: Notable for hypertension, multiple sclerosis. MEDICATIONS: Reviewed. ALLERGIES: Reviewed. SOCIAL HISTORY: Nonsmoker and nondrinker. No illicit drug use. REVIEW OF SYSTEMS: Otherwise negative. The patient is alert. PHYSICAL EXAMINATION: GENERAL: A well-developed female, comfortable. VITAL SIGNS NOTED HEENT: Negative. NECK: Supple. No airway swelling. LUNGS: With moderate air entry. No rhonchi. No wheezes. No stridor. CARDIAC: Normal S1 and S2. Slightly tachycardic. ABDOMEN: Soft, nontender. EXTREMITIES: No edema. LABORATORY DATA NOTED: Otherwise reviewed. White count 12.7, hemoglobin 16. Electrolytes negative. Blood sugar 118. Blood gas 7.26, 43, 106. K3.2 IMPRESSION: 1. Angioedema likely DANNY inhibitor related. 2. Acute respiratory failure. 3. Hypertension. 4. Multiple Sclerosis RECOMMENDATION: Discontinue DANNY for now and would now recommend using EpiPen PRN on discharge, wean Solu-Medrol, BiPAP PRN. Follow up exam. Follow up blood pressure reading and discharge once stable with outpatient followup. PTAMeds Critical Care - Objective Last 24 Hour Vital Signs Date Time Temp Pulse Resp B/P (MAP) Pulse Ox O2 Delivery O2 Flow Rate FiO2 02/20/19 15:31 Room Air 21 02/20/19 15:31 102 22 98 Nasal Cannula 2.0 28 02/20/19 14:00 102 16 145/86 (105) 94 02/20/19 13:00 106 16 152/86 (108) 99 02/20/19 12:27 97.8 02/20/19 12:00 Nasal Cannula 4.0 02/20/19 12:00 108 02/20/19 12:00 98.0 101 16 112/64 (80) 100 02/20/19 11:22 100 20 97 Room Air 21 02/20/19 11:15 93 20 98 Room Air 21 02/20/19 11:00 99 16 158/101 (120) 99 02/20/19 10:00 104 16 150/95 (113) 96 02/20/19 09:00 99 14 134/82 (99) 96 02/20/19 08:00 94 02/20/19 08:00 Nasal Cannula 4.0 02/20/19 08:00 Nasal Cannula 2.0 02/20/19 08:00 98.6 112 16 112/64 (80) 95 02/20/19 07:09 98 16 94 Room Air 21 02/20/19 07:09 Room Air 21 02/20/19 07:09 Room Air 21 02/20/19 07:09 94 Room Air 02/20/19 07:00 95 14 118/66 (83) 92 02/20/19 06:00 98 18 134/85 (101) 93 02/20/19 05:00 97 15 116/58 (77) 90 02/20/19 04:00 99 02/20/19 04:00 Nasal Cannula 4.0 02/20/19 04:00 98.0 126 20 154/64 (94) 93 02/20/19 03:53 104 18 98 Room Air 21 02/20/19 03:45 102 16 95 Room Air 21 02/20/19 03:00 108 22 134/65 (88) 92 02/20/19 02:00 110 21 137/80 (99) 93 02/20/19 01:00 112 18 134/85 (101) 93 02/20/19 00:00 97.8 114 16 116/79 (91) 89 02/20/19 00:00 97 02/20/19 00:00 Nasal Cannula 4.0 02/19/19 23:24 95 18 98 Room Air 21 02/19/19 23:15 109 16 95 Room Air 21 02/19/19 23:00 107 22 121/63 (82) 92 02/19/19 22:00 111 22 123/78 (93) 92 02/19/19 21:00 109 17 114/55 (74) 91 02/19/19 20:00 110 02/19/19 20:00 Nasal Cannula 4.0 02/19/19 20:00 97.8 111 18 116/62 (80) 90 02/19/19 19:27 112 18 95 Room Air 21 02/19/19 19:17 Room Air 21 02/19/19 19:17 95 Room Air 02/19/19 19:16 114 18 95 Room Air 21 02/19/19 19:00 115 16 118/65 (82) 98 02/19/19 18:00 108 16 116/61 (79) 98 Micro: Microbiology Date/Time Source Procedure Growth Status 02/18/19 07:30 Nasal Nares MRSA Culture - Final NO METHICILLIN RESISTANT STAPH AUREUS... Complete 02/18/19 07:30 Rectum VRE Culture - Final NO VANCOMYCIN RESISTANT ENTEROCOCCUS ... Complete Critical Care - Subjective ROS Limited/Unobtainable: No Condition: improving IV Access: peripheral EKG Rhythm: Sinus Rhythm FI02: 21 Vent Support Breath Rate: 15 Vent Support Mode: AC Vent Tidal Volume: 600 Sputum Amount: None PEEP: 10.0 PIP: 37 I&O: Intake and Output 02/19/19 02/20/19 18:59 06:59 Intake Total 50 ml 50 ml Output Total 440 ml 590 ml Balance -390 ml -540 ml Intake Oral 50 ml 50 ml Output Urine Total 440 ml 590 ml # Bowel Movements 3 3 ET-Tube: 6.0 ET Position: 23 Brannon Machado MD Feb 20, 2019 17:12
[2019-02-20] MEDS: AUBAGIO 14 MG ORAL SCH (18:56)
--- NOTE | 2019-02-20 19:28 | NUR ---
HAND-OFF: Report given to ARMIDA Foote.
--- NOTE | 2019-02-20 20:00 | NUR ---
NURSE NOTES: Received patient from Fam HUFFMAN.Patient is awake and oriented x4. Patient is on room air and shows no signs of respiratory distress. Patient can void freely with Nurse assist to the bathroom. IV site is Right arm 20 gauge is patent and asymptomatic. Bed is locked, placed in lowest position, side rails up x2, call light within reach. All needs attended to, will continue to monitor.
[2019-02-20] MEDS: NALTREXONE ORAL SCH (20:51)
[2019-02-20] MEDS ORDERED: Solu-MEDROL 125mg Inj IVP SCH ×2 (21:00)
[2019-02-21] VITALS: BP 139/78
[2019-02-21] MEDS: Albuterol/Ipratropium 3ml neb HHN SCH ×6 (02:42→22:52)
[2019-02-21 04:00] VITALS: BP 134/78
--- NOTE | 2019-02-21 07:20 | NUR ---
NURSE NOTES: Received report from Qamar/RN, Patient awake and alert x4, IV is patent, no sign of distress/SOB noted. Bed in low position, Call light within reach. Will continue plan of care.
--- NOTE | 2019-02-21 07:27 | NUR ---
HAND-OFF: Report given to Regis HUFFMAN.
[2019-02-21 07:34] LABS: HEMATOCRIT 41.8 % (37.0-47.0); HEMOGLOBIN 13.6 G/DL (12.0-16.0); MEAN CORPUSCULAR VOLUME 79 FL (80-99); PLATELET COUNT 314 K/UL (150-450); RED BLOOD COUNT 5.31 M/UL (4.20-5.40); RED CELL DISTRIBUTION WIDTH 15.4 % (11.6-14.8); WHITE BLOOD COUNT 15.3 K/UL (4.8-10.8)
[2019-02-21 07:42] LABS: ANION GAP 11 mmol/L (5-15); BLOOD UREA NITROGEN 22 mg/dL (7-18); CALCIUM 8.8 MG/DL (8.5-10.1); CARBON DIOXIDE 26 MMOL/L (21-32); CHLORIDE 104 MMOL/L (98-107); POTASSIUM 3.6 MMOL/L (3.5-5.1); SODIUM 141 MMOL/L (136-145)
[2019-02-21 08:00] VITALS: BP 158/83
[2019-02-21] MEDS ORDERED: Solu-MEDROL 40mg Inj IVP SCH (09:00)
[2019-02-21] MEDS ORDERED: Vitamin B-12 100mcg tab ORAL SCH (09:00)
[2019-02-21] MEDS ORDERED: Naproxen 500mg tab ORAL PRN (09:00)
[2019-02-21] MEDS: Heparin 5000 units/ml inj SUBQ SCH ×2 (09:59→21:00)
[2019-02-21] MEDS: AUBAGIO 14 MG ORAL SCH (10:02)
[2019-02-21] MEDS: Vitamin B-12 100mcg tab ORAL SCH (10:02)
[2019-02-21] MEDS: Solu-MEDROL 40mg Inj IVP SCH ×2 (10:03→21:32)
[2019-02-21 12:00] VITALS: BP 159/95
--- NOTE | 2019-02-21 13:14 | Surgery Progress Note ---
Surgery Progress Note Subjective Symptoms: improved, pain absent, tolerating diet, passing flatus, BM Objective Last 24 Hour Vital Signs Date Time Temp Pulse Resp B/P (MAP) Pulse Ox O2 Delivery O2 Flow Rate FiO2 02/21/19 11:21 92 19 98 Room Air 21 02/21/19 11:10 92 18 96 Room Air 21 02/21/19 08:58 92 17 94 Room Air 21 02/21/19 08:57 92 17 94 Room Air 21 02/21/19 08:00 97.3 89 18 158/83 (108) 95 02/21/19 07:35 91 21 98 Room Air 21 02/21/19 07:23 87 19 97 Room Air 21 02/21/19 07:23 97 Room Air 02/21/19 07:23 Room Air 02/21/19 04:00 85 02/21/19 04:00 98.0 99 20 134/78 (96) 94 02/21/19 02:52 95 20 98 Room Air 02/21/19 02:43 93 20 95 Room Air 02/21/19 00:00 97.9 93 20 139/78 (98) 94 02/20/19 23:46 85 02/20/19 22:30 93 20 99 Room Air 02/20/19 22:23 94 20 93 Room Air 02/20/19 20:51 94 156/86 02/20/19 20:00 98.0 94 20 156/86 (109) 94 02/20/19 20:00 101 02/20/19 20:00 Nasal Cannula 4.0 Room Air 02/20/19 19:11 102 18 98 Room Air 02/20/19 19:07 94 Room Air 02/20/19 19:07 99 22 94 Room Air 21 02/20/19 19:07 Room Air 21 02/20/19 19:06 99 18 94 Room Air 21 02/20/19 19:03 98 18 94 Room Air 21 02/20/19 16:00 97.8 111 20 150/64 (92) 100 02/20/19 16:00 Nasal Cannula 4.0 02/20/19 16:00 112 02/20/19 15:31 Room Air 21 02/20/19 15:31 102 22 98 Nasal Cannula 2.0 28 02/20/19 15:00 110 20 152/85 (107) 94 02/20/19 14:00 102 16 145/86 (105) 94 I&O Intake and Output 02/20/19 02/21/19 19:00 07:00 Intake Total 560 ml 240 ml Balance 560 ml 240 ml Intake Oral 560 ml 240 ml # Voids 2 2 # Bowel Movements 4 Cardiovascular: RSR Respiratory: clear Abdomen: soft, flat, non-tender, non-distended Extremities: no edema, no tenderness, no cyanosis Laboratory Tests Test 02/21/19 07:05 White Blood Count 15.3 K/UL (4.8-10.8) H Red Blood Count 5.31 M/UL (4.20-5.40) Hemoglobin 13.6 G/DL (12.0-16.0) Hematocrit 41.8 % (37.0-47.0) Mean Corpuscular Volume 79 FL (80-99) L Mean Corpuscular Hemoglobin 25.5 PG (27.0-31.0) L Mean Corpuscular Hemoglobin Concent 32.4 G/DL (32.0-36.0) Red Cell Distribution Width 15.4 % (11.6-14.8) H Platelet Count 314 K/UL (150-450) Mean Platelet Volume 6.0 FL (6.5-10.1) L Neutrophils (%) (Auto) % (45.0-75.0) Lymphocytes (%) (Auto) % (20.0-45.0) Monocytes (%) (Auto) % (1.0-10.0) Eosinophils (%) (Auto) % (0.0-3.0) Basophils (%) (Auto) % (0.0-2.0) Differential Total Cells Counted 100 Neutrophils % (Manual) 90 % (45-75) H Lymphocytes % (Manual) 8 % (20-45) L Monocytes % (Manual) 2 % (1-10) Eosinophils % (Manual) 0 % (0-3) Basophils % (Manual) 0 % (0-2) Band Neutrophils 0 % (0-8) Platelet Estimate Adequate Platelet Morphology Normal Red Blood Cell Morphology Normal Anisocytosis Sodium Level 141 MMOL/L (136-145) Potassium Level 3.6 MMOL/L (3.5-5.1) Chloride Level 104 MMOL/L (98-107) Carbon Dioxide Level 26 MMOL/L (21-32) Anion Gap 11 mmol/L (5-15) Blood Urea Nitrogen 22 mg/dL (7-18) H Creatinine 1.0 MG/DL (0.55-1.30) Estimat Glomerular Filtration Rate > 60 mL/min (>60) Glucose Level 164 MG/DL (74-106) H Calcium Level 8.8 MG/DL (8.5-10.1) Plan Problems: (1) Allergic angioedema Assessment & Plan: Potentially related to her lisinopril or other medications. Seems to be improving since admitted and given therapy. (2) Acute respiratory failure Assessment & Plan: Acute respiratory compromise from likely allergic reaction. Seems to be improving since admitted. Has foreign body sensation in the back of her throat with edema and swelling without foreign body identified. no respiratory compromise at this time. Continue with intensive care unit monitoring. cont with Rx as written. O2. okay for clear liquids. AM labs. Abx. will be available in case of air way compromise. thank you for allowing me to participate in care . leukocytosis likely from steroids improving monitor discharge planning Guero Baird Feb 21, 2019 13:14
[2019-02-21 16:00] VITALS: BP 154/100
--- NOTE | 2019-02-21 16:08 | NUR ---
CASE MANAGEMENT: REVIEW 02/21/2019 SI: ALLERGIC ANGIOEDEMA. T 97.3 HR 89 RR 18 B/P 158/83 SATS 95% ON RA WBC 15.3 BUN 22 GLU 164 IS: SOLU MEDROL IV Q12HR ALBUTEROL HHN Q4HR HEPARIN SUBQ Q12HR TELE STATUS DCP: PATIENT IS FROM HOME
--- NOTE | 2019-02-21 16:55 | Pulmonolgy Critical Care Note ---
Critical Care - Asmt/Plan Assessment/Plan: Pulmonary/CCM Progress Note REASON FOR ADMISSION: Angioedema. HISTORY OF PRESENT ILLNESS: The patient is a 63-year-old female, history of hypertension on lisinopril. The patient has history of multiple sclerosis. The patient apparently has history of angioedema in the past. She was brought in after eating popcorn for 30 minutes and noted a foreign body sensation, difficulty breathing. The patient came in with severe angioedema, intubated, and then self-extubated. The patient currently well and comfortable. No significant distress. No stridor. Feels improved today, still hoarse/coughing PAST MEDICAL HISTORY: Notable for hypertension, multiple sclerosis. MEDICATIONS: Reviewed. ALLERGIES: Reviewed. SOCIAL HISTORY: Nonsmoker and nondrinker. No illicit drug use. REVIEW OF SYSTEMS: Otherwise negative. The patient is alert. PHYSICAL EXAMINATION: GENERAL: A well-developed female, comfortable. VITAL SIGNS NOTED HEENT: Negative. NECK: Supple. No airway swelling. LUNGS: With moderate air entry. No rhonchi. No wheezes. No stridor. CARDIAC: Normal S1 and S2. Slightly tachycardic. ABDOMEN: Soft, nontender. EXTREMITIES: No edema. LABORATORY DATA NOTED: IMPRESSION: 1. Angioedema likely DANNY inhibitor related. 2. Acute respiratory failure. 3. Hypertension. 4. Multiple Sclerosis RECOMMENDATION: Discontinue DANNY for now and would now recommend using EpiPen PRN on discharge, wean Solu-Medrol, BiPAP PRN. Follow up exam. Add Norvasc. HEALTH COMPANION Meds Critical Care - Objective Last 24 Hour Vital Signs Date Time Temp Pulse Resp B/P (MAP) Pulse Ox O2 Delivery O2 Flow Rate FiO2 02/21/19 15:36 96 19 97 Room Air 02/21/19 15:25 97 17 93 Room Air 02/21/19 14:47 94 159/95 02/21/19 11:21 92 19 98 Room Air 21 02/21/19 11:10 92 18 96 Room Air 02/21/19 09:00 Room Air Room Air 02/21/19 08:58 92 17 94 Room Air 02/21/19 08:57 92 17 94 Room Air 21 02/21/19 08:00 97.3 89 18 158/83 (108) 95 02/21/19 07:35 91 21 98 Room Air 02/21/19 07:23 87 19 97 Room Air 21 02/21/19 07:23 97 Room Air 02/21/19 07:23 Room Air 02/21/19 04:00 85 02/21/19 04:00 98.0 99 20 134/78 (96) 94 02/21/19 02:52 95 20 98 Room Air 02/21/19 02:43 93 20 95 Room Air 02/21/19 00:00 97.9 93 20 139/78 (98) 94 02/20/19 23:46 85 02/20/19 22:30 93 20 99 Room Air 21 02/20/19 22:23 94 20 93 Room Air 21 02/20/19 20:51 94 156/86 02/20/19 20:00 98.0 94 20 156/86 (109) 94 02/20/19 20:00 101 02/20/19 20:00 Nasal Cannula 4.0 Room Air 02/20/19 19:11 102 18 98 Room Air 02/20/19 19:07 94 Room Air 02/20/19 19:07 99 22 94 Room Air 02/20/19 19:07 Room Air 21 02/20/19 19:06 99 18 94 Room Air 21 02/20/19 19:03 98 18 94 Room Air 21 Critical Care - Subjective ROS Limited/Unobtainable: No Condition: improving IV Access: peripheral EKG Rhythm: Sinus Rhythm FI02: 21 Vent Support Breath Rate: 15 Vent Support Mode: AC Vent Tidal Volume: 600 Sputum Amount: None PEEP: 10.0 PIP: 37 I&O: Intake and Output 02/20/19 02/21/19 18:59 06:59 Intake Total 560 ml 240 ml Output Total 0 ml Balance 560 ml 240 ml Intake Oral 560 ml 240 ml Output Urine Total 0 ml # Voids 2 2 # Bowel Movements 4 ET-Tube: 6.0 ET Position: 23 Brannon Machado MD Feb 21, 2019 16:55
--- NOTE | 2019-02-21 19:15 | NUR ---
HAND-OFF: Report given to Lilibeth/ARMIDA, Patient is awake. No sign of distress/SOB noted. Endorsed plan of care..
[2019-02-21 20:00] VITALS: BP 142/88
[2019-02-21] MEDS: NALTREXONE ORAL SCH (21:32)
[2019-02-22] VITALS: BP 140/87
[2019-02-22] MEDS: Albuterol/Ipratropium 3ml neb HHN SCH ×4 (03:15→15:15)
[2019-02-22 04:00] VITALS: BP 125/76
--- NOTE | 2019-02-22 05:19 | NUR ---
NURSE NOTES: Pt is sleeping w/o distress, arousable by voice stimuli. SR in the monitor. Will continue to monitor.
--- NOTE | 2019-02-22 07:30 | NUR ---
HAND-OFF: Report given to Jaquelin Benito RN. No c/o pain.
--- NOTE | 2019-02-22 07:34 | NUR ---
NURSE NOTES: Recvd pt. Pt is awake and alert laying in bed. AOx4. Pt is on room air with no sign of sob or resp distress. Pt has right FA 20g locked/ c/d/i. Pt amb independently, bathroom privileges. Bed in lowest position, will continue with plan of care.
[2019-02-22 08:00] VITALS: BP 157/100
[2019-02-22 08:24] LABS: BASOPHILS % (AUTO) 0.5 % (0.0-2.0); HEMATOCRIT 44.1 % (37.0-47.0); HEMOGLOBIN 14.5 G/DL (12.0-16.0); LYMPHOCYTES % (AUTO) 15.4 % (20.0-45.0); MEAN CORPUSCULAR VOLUME 79 FL (80-99); MONOCYTES % (AUTO) 3.2 % (1.0-10.0); NEUTROPHILS % (AUTO) 80.9 % (45.0-75.0); PLATELET COUNT 341 K/UL (150-450); RED BLOOD COUNT 5.58 M/UL (4.20-5.40); RED CELL DISTRIBUTION WIDTH 15.4 % (11.6-14.8); WHITE BLOOD COUNT 13.5 K/UL (4.8-10.8)
[2019-02-22] MEDS: Vitamin B-12 100mcg tab ORAL SCH (08:29)
[2019-02-22] MEDS: AUBAGIO 14 MG ORAL SCH (08:30)
[2019-02-22] MEDS: Heparin 5000 units/ml inj SUBQ SCH (08:33)
[2019-02-22 08:34] LABS: ANION GAP 13 mmol/L (5-15); BLOOD UREA NITROGEN 19 mg/dL (7-18); CARBON DIOXIDE 25 MMOL/L (21-32); CHLORIDE 103 MMOL/L (98-107); CREATININE 1.1 MG/DL (0.55-1.30); POTASSIUM 3.7 MMOL/L (3.5-5.1); SODIUM 140 MMOL/L (136-145)
[2019-02-22] MEDS: Solu-MEDROL 40mg Inj IVP SCH (08:34)
[2019-02-22 12:00] VITALS: BP 141/78
--- NOTE | 2019-02-22 13:55 | Surgery Progress Note ---
Surgery Progress Note Subjective Symptoms: improved, pain absent, tolerating diet, passing flatus, BM Objective Last 24 Hour Vital Signs Date Time Temp Pulse Resp B/P (MAP) Pulse Ox O2 Delivery O2 Flow Rate FiO2 02/22/19 12:00 98.4 91 20 141/78 (99) 96 02/22/19 12:00 79 02/22/19 10:52 116 18 98 Room Air 21 02/22/19 10:44 84 16 94 Room Air 21 02/22/19 09:00 Room Air Room Air 02/22/19 08:53 90 18 98 Room Air 21 02/22/19 08:52 90 16 98 Room Air 21 02/22/19 08:30 97 157/100 02/22/19 08:00 117 02/22/19 08:00 98.0 83 18 157/100 (119) 97 02/22/19 07:01 88 18 98 Room Air 21 02/22/19 06:54 96 Room Air 21 02/22/19 06:54 Room Air 21 02/22/19 06:54 80 16 96 Room Air 21 02/22/19 04:00 98.3 80 18 125/76 (92) 94 02/22/19 03:41 77 02/22/19 03:25 90 18 93 Room Air 21 02/22/19 03:15 90 18 93 Room Air 21 02/22/19 00:00 98.5 84 18 140/87 (104) 94 02/21/19 23:44 76 02/21/19 23:04 89 18 99 Room Air 21 02/21/19 22:53 86 18 97 Room Air 21 02/21/19 21:00 Room Air Room Air 02/21/19 20:28 92 18 98 Room Air 21 02/21/19 20:27 91 18 98 Room Air 21 02/21/19 20:00 98.6 92 18 142/88 (106) 93 02/21/19 19:53 94 18 99 Room Air 21 02/21/19 19:43 92 18 97 Room Air 21 02/21/19 19:43 97 Room Air 21 02/21/19 19:43 Room Air 21 02/21/19 19:31 83 02/21/19 16:00 91 02/21/19 16:00 98.5 94 18 154/100 (118) 94 02/21/19 15:36 96 19 97 Room Air 21 02/21/19 15:25 97 17 93 Room Air 21 02/21/19 14:47 94 159/95 I&O Intake and Output 02/21/19 02/22/19 19:00 07:00 Intake Total 500 ml Balance 500 ml Intake Oral 500 ml # Voids 2 2 # Bowel Movements 2 1 Cardiovascular: RSR Respiratory: clear Abdomen: soft, flat, non-tender, present bowel sounds, non-distended Extremities: no edema, no tenderness, no cyanosis Laboratory Tests Test 02/22/19 07:50 White Blood Count 13.5 K/UL (4.8-10.8) H Red Blood Count 5.58 M/UL (4.20-5.40) H Hemoglobin 14.5 G/DL (12.0-16.0) Hematocrit 44.1 % (37.0-47.0) Mean Corpuscular Volume 79 FL (80-99) L Mean Corpuscular Hemoglobin 26.0 PG (27.0-31.0) L Mean Corpuscular Hemoglobin Concent 32.9 G/DL (32.0-36.0) Red Cell Distribution Width 15.4 % (11.6-14.8) H Platelet Count 341 K/UL (150-450) Mean Platelet Volume 6.4 FL (6.5-10.1) L Neutrophils (%) (Auto) 80.9 % (45.0-75.0) H Lymphocytes (%) (Auto) 15.4 % (20.0-45.0) L Monocytes (%) (Auto) 3.2 % (1.0-10.0) Eosinophils (%) (Auto) 0.0 % (0.0-3.0) Basophils (%) (Auto) 0.5 % (0.0-2.0) Sodium Level 140 MMOL/L (136-145) Potassium Level 3.7 MMOL/L (3.5-5.1) Chloride Level 103 MMOL/L (98-107) Carbon Dioxide Level 25 MMOL/L (21-32) Anion Gap 13 mmol/L (5-15) Blood Urea Nitrogen 19 mg/dL (7-18) H Creatinine 1.1 MG/DL (0.55-1.30) Estimat Glomerular Filtration Rate > 60 mL/min (>60) Glucose Level 189 MG/DL (74-106) H Calcium Level 9.0 MG/DL (8.5-10.1) Plan Problems: (1) Allergic angioedema Assessment & Plan: Potentially related to her lisinopril or other medications. Seems to be improving since admitted and given therapy. leukocytosis improving overall improved (2) Acute respiratory failure Assessment & Plan: Acute respiratory compromise from likely allergic reaction. Seems to be improving since admitted. Has foreign body sensation in the back of her throat with edema and swelling without foreign body identified. no respiratory compromise at this time. Continue with intensive care unit monitoring. cont with Rx as written. O2. okay for clear liquids. AM labs. Abx. will be available in case of air way compromise. thank you for allowing me to participate in care . leukocytosis likely from steroids improving monitor discharge planning Guero Baird Feb 22, 2019 13:55
[2019-02-22 16:00] VITALS: BP 143/97
--- NOTE | 2019-02-22 18:35 | NUR ---
NURSE NOTES: Pt belongings returned to pt. Pt in stable condition. DC teaching given, prescription given, home meds returned. IV removed, armband removed. Son Shira to drive pt home. Pt walked off floor at 1830.
--- NOTE | 2019-02-22 23:33 | Pulmonolgy Critical Care Note ---
Critical Care - Asmt/Plan Assessment/Plan: Pulmonary/CCM Progress Note REASON FOR ADMISSION: Angioedema. HISTORY OF PRESENT ILLNESS: The patient is a 63-year-old female, history of hypertension on lisinopril. The patient has history of multiple sclerosis. The patient apparently has history of angioedema in the past. She was brought in after eating popcorn for 30 minutes and noted a foreign body sensation, difficulty breathing. The patient came in with severe angioedema, intubated, and then self-extubated. The patient currently well and comfortable. No significant distress. No stridor. Feels improved today, still hoarse/coughing No new complainyts, seen earlier PAST MEDICAL HISTORY: Notable for hypertension, multiple sclerosis. MEDICATIONS: Reviewed. ALLERGIES: Reviewed. SOCIAL HISTORY: Nonsmoker and nondrinker. No illicit drug use. REVIEW OF SYSTEMS: Otherwise negative. The patient is alert. PHYSICAL EXAMINATION: GENERAL: A well-developed female, comfortable. VITAL SIGNS NOTED HEENT: Negative. NECK: Supple. No airway swelling. LUNGS: With moderate air entry. No rhonchi. No wheezes. No stridor. CARDIAC: Normal S1 and S2. Slightly tachycardic. ABDOMEN: Soft, nontender. EXTREMITIES: No edema. LABORATORY DATA NOTED: IMPRESSION: 1. Angioedema likely DANNY inhibitor related. 2. Acute respiratory failure. 3. Hypertension. 4. Multiple Sclerosis RECOMMENDATION: Continue Norvasc. MATERIAL ASSISTANT Meds DC Medrol dose pack, Epipen, PRN Albuterol Critical Care - Objective Last 24 Hour Vital Signs Date Time Temp Pulse Resp B/P (MAP) Pulse Ox O2 Delivery O2 Flow Rate FiO2 02/22/19 16:00 98.6 96 18 143/97 (112) 98 02/22/19 16:00 90 02/22/19 16:00 98.6 96 18 143/97 (112) 98 02/22/19 15:26 112 20 100 Room Air 21 02/22/19 15:15 90 18 99 Room Air 21 02/22/19 12:00 98.4 91 20 141/78 (99) 96 02/22/19 12:00 79 02/22/19 10:52 116 18 98 Room Air 21 02/22/19 10:44 84 16 94 Room Air 21 02/22/19 09:00 Room Air Room Air 02/22/19 08:53 90 18 98 Room Air 21 02/22/19 08:52 90 16 98 Room Air 21 02/22/19 08:30 97 157/100 02/22/19 08:00 117 02/22/19 08:00 98.0 83 18 157/100 (119) 97 02/22/19 07:01 88 18 98 Room Air 21 02/22/19 06:54 96 Room Air 21 02/22/19 06:54 Room Air 21 02/22/19 06:54 80 16 96 Room Air 21 02/22/19 04:00 98.3 80 18 125/76 (92) 94 02/22/19 03:41 77 02/22/19 03:25 90 18 93 Room Air 21 02/22/19 03:15 90 18 93 Room Air 21 02/22/19 00:00 98.5 84 18 140/87 (104) 94 02/21/19 23:44 76 Critical Care - Subjective ROS Limited/Unobtainable: No FI02: 21 Vent Support Breath Rate: 15 Vent Support Mode: AC Vent Tidal Volume: 600 Sputum Amount: None PEEP: 10.0 PIP: 37 I&O: Intake and Output 02/21/19 02/22/19 18:59 06:59 Intake Total 500 ml Balance 500 ml Intake Oral 500 ml # Voids 2 2 # Bowel Movements 2 1 ET-Tube: 6.0 ET Position: 23 Brannon Machado MD Feb 22, 2019 23:33
--- NOTE | 2019-02-24 08:19 | Discharge Summary ---
Discharge Summary Discharge Summary _ DATE OF ADMISSION: 02/18/2019 DATE OF DISCHARGE: 401 19 DISCHARGED BY: Dr. Sims REASON FOR ADMISSION: 63 years old female with past medical history of hypertension, asthma, multiple sclerosis, , recently diagnosed, presented with complaint of foreign body sensation. Onset started 30 minutes after she ate popcorn. Patient reported foreign body sensation in her throat. She attempted to cough and self induced vomtiing without success. She felt her throat was swelling . She denied allergy to corn . She never had this problem in the past . Subsequently she came to emergency room for evaluation . Upon evaluation blood pressure was elevated 172/103 Initial chest x-ray revealed no acute findings. Laboratory workup revealed leukocytosis WBC 12.7, chemistry was unremarkable. Urinalysis was unremarkable. Patient presented with angioedema most likely triggered by DANNY inhibitor, since she was taking lisinopril at home. Her symptoms worsen with increased tongue edema and soft tissue edema in the neck. Patient was intubated by emergency room physician for airway protection. Post intubation chest x-ray confirmed correct placement of endotracheal tube EKG revealed normal sinus rhythm, no acute ischemic changes Patient was placed on propofol . However, while still in ED, patient became more agitated and awake and self extubated herself. Patient reported hoarseness to her voice, but her tongue swelling and edema in submental area decreased. Patient was placed on the BiPAP . ABG on the BiPAP was stable. Patient was subsequently transferred to ICU for further management. CONSULTANTS: surgery Dr. Baird [facility]SE: Patient admitted to ICU. Respiratory status was closely monitored. Supplemental oxygen titrated to keep pulse oximetry above 90%. Pulmonary toilet provided. Patient started on steroid and antihistamine. Blood pressure was managed with calcium channel anupam . DVT prophylaxis provided. Patient was continued with home inhaler/Symbicort. Home medication for MS resumed. Patient instructed not to take DANNY inhibitor and inform her primary care provider about probable serious allergy. If blood pressure in future not controlled with calcium channel anupam alone , then another antihypertensive should be added . Patient was able to be weaned from the BiPAP. Pulse oximetry was stable on room air. Surgeon closely follow. Respiratory status remained stable. Sensation of foreign body in her throat was due to edema and time swelling without foreign body identified. No further respiratory compromise. Lungs were clear. Patient clinically improved, tolerated diet, no signs of respiratory distress Mild leukocytosis was likely due to steroids. No fevers . Patient clinically stabilized and was ready for discharge. Prescription for EpiPen , Medrol Dosepak and albuterol inhaler as needed, provided upon discharge. Patient was subsequently discharged home. FINAL DIAGNOSES: Acute angioedema, likely DANNY inhibitor related Acute respiratory failure , requiring intubation Hypertension Multiple sclerosis DISCHARGE MEDICATIONS: List of discharge medication provided to patient. Prescription given. DISCHARGE INSTRUCTIONS: Patient was discharged home. Follow up with primary care provider in one week. I have been assigned to dictate discharge summary for this account. I was not involved in the patient's management. Isabelle Pandey NP Feb 24, 2019 08:19
== END 2019-02-22 18:38 | disposition home or self-care (01) | DRG 915 ==
LOC: EMR 02:39 → ICU 02:52 → EDBEDREQ 03:01 → 2E 02-20 16:45
PROC: 30233K1 Transfusion of Nonautologous Frozen Plasma into Peripheral Vein, Percutaneous Approach (ICD-10-PCS; principal; 2019-02-18)
PROC: 0BH17EZ Insertion of Endotracheal Airway into Trachea, Via Natural or Artificial Opening (ICD-10-PCS; principal; 2019-02-18)
PROC: 5A09357 Assistance with Respiratory Ventilation, Less than 24 Consecutive Hours, Continuous Positive Airway Pressure (ICD-10-PCS; principal; 2019-02-18)
DX: T78.3XXA Angioneurotic edema, initial encounter (principal); J96.00 Acute respiratory failure, unspecified whether with hypoxia or hypercapnia; T46.4X5A Adverse effect of angiotensin-converting-enzyme inhibitors, initial encounter; Y92.009 Unspecified place in unspecified non-institutional (private) residence as the place of occurrence of the external cause; G35 Multiple sclerosis; I10 Essential (primary) hypertension; Z88.1 Allergy status to other antibiotic agents; Z88.0 Allergy status to penicillin; Z88.8 Allergy status to other drugs, medicaments and biological substances
CPT/HCPCS: 31500; 36415; 36600; 71045; 74018; 80048; 80053; 81001; 82150; 82803; 83690; 84478; 85007; 85025; 85610; 85651; 85730; 86140; 86850; 86900; 86901; 87081; 93005; 94002; 94640; 94660; 94664; 94760; 96374; 96375; 99291; J2250; J7620; J8499